=== PATIENT | female | born 1945 | race Caucasian/White ===

== ENCOUNTER 2019-01-26 06:52 | Day surgery (SDC) | payer MEDICARE, OTHER, SELFPAY ==
[2019-01-26 08:00] VITALS: BMI 39.8
[2019-01-26 08:05] VITALS: BP 172/77; PULSE 87; RESP 18; TEMP 36.1; O2SAT 95
[2019-01-26] MEDS: CATARACT EYE COMPOUND (10 DROPS/SYRINGE) 3 DROPS EYE-OP (08:11)
[2019-01-26] MEDS: PROPARACAINE 0.5% OPHTH SOL 2 DROPS EYE-OP (08:11)
--- NOTE | 2019-01-26 08:34 | PM.PREOP ---
Pre-operative Note Interval Note History & Physical reviewed/Exam performed by Physician: No Changes to H&P: No
--- NOTE | 2019-01-26 08:35 | PM.OP.1 ---
Operative Date/Time/Diagnoses Pre-op diagnosis: Nuclear cataract right eye Procedure & Clinicians Procedure: Cataract Surgery Same procedure as scheduled: Yes Surgeon: Fuad Mckeon Anesthesia Type: MAC +/- and Sedation Operative Notes Procedure in detail: Patient brought to the operating suite. Tetracaine drops placed in the right eye. Patient was prepped and draped in sterile manner. Wire lid speculum was placed in the eye. Betadine drops were placed on the eye. This was irrigated. Lidocaine jelly was placed on the eye. A paracentesis port was created with a side-port blade. 0.1 mL 1% preservative free lidocaine was injected into the anterior chamber. The anterior chamber was deepened with viscoelastic. 2.6 mm keratome was used to create a temporal clear corneal incision. Cystotome and Utrata forceps were used to create continuous tear capsulorrhexis. Balanced salt solution was used to hydro dissect the nucleus. The phacoemulsification handpiece was inserted and the nucleus was removed using the stop and chop technique. The irrigation aspiration handpiece was inserted and the remaining cortex was removed. Anterior chamber was deepened with viscoelastic. An Young ZCB00 intraocular lens with a power of 20.5 was injected into the capsular bag. Irrigation aspiration handpiece was inserted and the remaining viscoelastic was removed. Incision was hydrated with balanced salt solution and found to be leak free with pressure with Weck-Lorie sponges. 0.1 mL Vigamox injected anterior chamber. 0.3 mL Kenalog 10 mg was injected subconjunctivally. Lid speculum was removed. The patient left the operating room in excellent condition. Complications: none Post-operative Condition: stable Disposition: same day surgery
[2019-01-26] MEDS: MOXIFLOXACIN 0.5% OPHTH 60 DROPS/BOTTLE DROPS EYE-BOTH (08:46)
[2019-01-26] MEDS: LIDOCAINE JELLY 2% 5 ML 1 APPLIC TOP (08:46)
[2019-01-26] MEDS: PHENYLEPHRINE/LIDOCAINE VIAL (OR) 0.2 ML EYE-OP (08:46)
[2019-01-26] MEDS: BALANCED SALT IRRIG SOLN NO.2 500 ML, EPINEPHrine 1 MG IRR (08:47)
[2019-01-26] MEDS: TETRACAINE 0.5% OPHTH DROPS 4 ML 2 DROPS EYE-OP (08:47)
[2019-01-26] MEDS: CHONDROIDTIN/SOD HYALURONATE 1.05 ML SYRINGE INTRAOCULA (08:47)
[2019-01-26] MEDS: TRIAMCINOLONE 50 MG/5 ML VIAL INJ (08:47)
[2019-01-26 09:04] VITALS: BP 140/76; PULSE 53; RESP 15; TEMP 36.2; O2SAT 94
[2019-01-26 09:16] VITALS: BP 117/76; PULSE 70; RESP 14; TEMP 36.2; O2SAT 95
== END 2019-01-26 09:26 ==
LOC: OR 06:57
PROVIDERS: PCP Student in an Organized Health Care Education/Training Program; Visit Provider Ophthalmology
PROC: (CPT 66984; principal; 2019-01-26 08:45)
DX: H25.11 Age-related nuclear cataract, right eye (principal)
CPT/HCPCS: 66984; J0171; J2250; J3010; J3301

== ENCOUNTER 2019-02-16 11:41 | Day surgery (SDC) | payer MEDICARE, OTHER, SELFPAY ==
[2019-02-16 12:25] VITALS: BMI 34.5
[2019-02-16] MEDS: PROPARACAINE 0.5% OPHTH SOL 2 DROPS EYE-OP (12:35)
[2019-02-16] MEDS: CATARACT EYE COMPOUND (10 DROPS/SYRINGE) 3 DROPS EYE-OP (12:40)
--- NOTE | 2019-02-16 12:43 | PM.PREOP ---
Pre-operative Note Interval Note History & Physical reviewed/Exam performed by Physician: No Changes to H&P: No
--- NOTE | 2019-02-16 12:43 | PM.OP.1 ---
Operative Date/Time/Diagnoses Pre-op diagnosis: Nuclear Cataract Left eye Post-op diagnosis: same Procedure & Clinicians Surgeon: Fuad Mckeon Anesthesia Type: MAC +/- and Sedation Operative Notes Procedure in detail: Patient brought to the operating suite. Tetracaine drops placed in the left eye. Patient was prepped and draped in sterile manner. Wire lid speculum was placed in the eye. Betadine drops were placed on the eye. This was irrigated. Lidocaine jelly was placed on the eye. A paracentesis port was created with a side-port blade. 0.1 mL 1% preservative free lidocaine was injected into the anterior chamber. The anterior chamber was deepened with viscoelastic. 2.6 mm keratome was used to create a temporal clear corneal incision. Cystotome and Utrata forceps were used to create continuous tear capsulorrhexis. Balanced salt solution was used to hydro dissect the nucleus. The phacoemulsification handpiece was inserted and the nucleus was removed using the stop and chop technique. The irrigation aspiration handpiece was inserted and the remaining cortex was removed. Anterior chamber was deepened with viscoelastic. An Young ZCB00 intraocular lens with a power of 20.5 was injected into the capsular bag. Irrigation aspiration handpiece was inserted and the remaining viscoelastic was removed. Incision was hydrated with balanced salt solution and found to be leak free with pressure with Weck-Lorie sponges. 0.1 mL Vigamox injected anterior chamber. 0.3 mL Kenalog 10 mg was injected subconjunctivally. Lid speculum was removed. The patient left the operating room in excellent condition. Complications: none Post-operative Condition: stable Disposition: same day surgery
--- NOTE | 2019-02-16 12:59 | SUR.OPER ---
Supine on eye stretcher, head on extension cradle secured with tape. Arms tucked at sides with blanket. Pillow under knees.
[2019-02-16] MEDS: PHENYLEPHRINE/LIDOCAINE VIAL (OR) 0.2 ML EYE-OP (13:01)
[2019-02-16] MEDS: CHONDROIDTIN/SOD HYALURONATE 1.05 ML SYRINGE INTRAOCULA (13:01)
[2019-02-16] MEDS: TRIAMCINOLONE 50 MG/5 ML VIAL INJ (13:01)
[2019-02-16] MEDS: BALANCED SALT IRRIG SOLN NO.2 500 ML, EPINEPHrine 1 MG IRR (13:02)
[2019-02-16] MEDS: TETRACAINE 0.5% OPHTH DROPS 4 ML 2 DROPS EYE-OP (13:02)
[2019-02-16] MEDS: LIDOCAINE JELLY 2% 5 ML 1 APPLIC TOP (13:02)
[2019-02-16] MEDS: MOXIFLOXACIN INJ 5 MG/ML VIAL EYE-OP (13:03)
[2019-02-16 13:15] VITALS: BP 190/106; PULSE 80
[2019-02-16 13:27] VITALS: BP 190/90; PULSE 70; RESP 16; TEMP 35.9; O2SAT 99
[2019-02-16 13:45] VITALS: BP 157/74; PULSE 74; RESP 16; O2SAT 99
== END 2019-02-16 13:49 | disposition home or self-care (01) ==
PROVIDERS: PCP Student in an Organized Health Care Education/Training Program; Visit Provider Ophthalmology
PROC: (CPT 66984; principal; 2019-02-16 13:45)
DX: H25.12 Age-related nuclear cataract, left eye (principal); I10 Essential (primary) hypertension; J44.9 Chronic obstructive pulmonary disease, unspecified
CPT/HCPCS: 66984; J0171; J2250; J3010; J3301

== ENCOUNTER → 2019-04-27 14:33 | Outpatient (ROUT) | payer MEDICARE, OTHER, SELFPAY ==
[2019-04-27 15:11] LABS: Influenza A - CEPHEID Flu A POSITIVE (NEGATIVE); Influenza B - CEPHEID Flu B NEGATIVE (NEGATIVE)
== END ==
PROVIDERS: PCP Student in an Organized Health Care Education/Training Program; Visit Provider Internal Medicine
DX: R05 Cough (principal); R09.81 Nasal congestion; R52 Pain, unspecified
CPT/HCPCS: 87502

== ENCOUNTER → 2019-05-24 12:50 | Outpatient (CLI) | payer MEDICARE, OTHER, SELFPAY ==
--- NOTE | 2019-05-24 | DI.MRI.S_ITS ---
PROCEDURE: MR PELIS WO/W CON INDICATIONS: Right ovarian cyst/mass TECHNIQUE: Noncontrast coronal T1 spin echo and STIR, sagittal T1 spin echo with fat saturation and STIR, axial T1 spin echo and T2 fast spin echo with fat saturation. After the administration of contrast, axial/sagittal/coronal T1 spin echo with fat saturation through the pelvis. COMPARISON: [facility], RG, CT ABDOMEN/PELVIS WITHOUT CONTRAST, 05/03/2019, 2:17. FINDINGS: Image quality: Excellent. Bones: The visualized bone marrow demonstrates normal signal on all sequences. The overlying cortex appears intact. No abnormal intraosseous enhancement. Soft tissues: No soft tissue masses are visualized. There is a previously identified large cyst at the right hemipelvis extending to the midline, with the maximal axial dimensions of 6.8 cm craniocaudad, 6.0 cm transverse, and 7.8 cm AP. No nodularity, internal septations or adjacent adenopathy is found. No contrast enhancement is identified. The scanned muscles demonstrate normal overall bulk and internal signal. Subcutaneous tissues appear normal as well. No abnormal soft tissue enhancement. IMPRESSION: Large but simple appearing cyst right adnexa, measuring up to 6.8 x 6.0 x 7.8 cm. This shows no mural nodularity, no internal septations, measures water in density centrally on CT scanning from 05/03/19, and has not changed over time. Benign etiology is presumed. If clinically desired followup by ultrasound scanning could be performed. Gynecological consultation is anticipated for definitive advise on management of this particular finding. Dictated by: Hubert Smith M.D. on 05/24/2019 at 17:19 Approved by: Hubert Smith M.D. on 05/24/2019 at 17:24
== END ==
PROVIDERS: PCP Student in an Organized Health Care Education/Training Program; Referring Provider Student in an Organized Health Care Education/Training Program; Visit Provider Student in an Organized Health Care Education/Training Program
DX: N83.201 Unspecified ovarian cyst, right side (principal)
CPT/HCPCS: 72197; A9579

== ENCOUNTER → 2020-04-18 15:38 | Outpatient (CLI) | payer MEDICARE, OTHER, SELFPAY ==
[2020-04-18 16:17] LABS: D Dimer 221 ng/mL (<230)
== END ==
PROVIDERS: PCP Student in an Organized Health Care Education/Training Program; Referring Provider Student in an Organized Health Care Education/Training Program; Visit Provider Student in an Organized Health Care Education/Training Program
DX: R09.89 Other specified symptoms and signs involving the circulatory and respiratory systems (principal); L81.9 Disorder of pigmentation, unspecified
CPT/HCPCS: 36415; 85379

== ENCOUNTER → 2020-04-20 13:52 | Outpatient (CLI) | payer MEDICARE, OTHER, SELFPAY | PROVIDERS: PCP Student in an Organized Health Care Education/Training Program; Referring Provider Student in an Organized Health Care Education/Training Program; Visit Provider Student in an Organized Health Care Education/Training Program | DX: N83.9 Noninflammatory disorder of ovary, fallopian tube and broad ligament, unspecified (principal) ==

== ENCOUNTER → 2020-04-20 13:56 | Outpatient (CLI) | payer MEDICARE, OTHER, SELFPAY ==
--- NOTE | 2020-04-20 | DI.US.S_ITS ---
PROCEDURE: US PELVIC COMPLETE INDICATIONS: INFLAMMATORY DISORDER OF OVARIES TECHNIQUE: Real-time scanning was performed of the pelvic organs, with image documentation. COMPARISON: [facility], MR, MR PELVIS WO/W CON, 05/24/2019, 13:17. FINDINGS: Transabdominal scanning: Limited scanning through the kidneys shows no hydronephrosis. No pathologic free abdominal or pelvic fluid. Uterus: Uterus is normal in size at 7.1 x 6.7 x 3.0 cm. The endometrium not well seen sonographically. Ovaries: Redemonstrated right adnexal cyst, with relatively simple appearance and scattered internal low level echoes suggestive of debris measuring 7.1 x 8.1 x 7.0 cm, previously 6.8 x 6.0 x 7.8 cm. Left ovary not well visualized. Right ovary not well seen. IMPRESSION: Redemonstrated right adnexal cyst. This is much better characterized on the comparison MRI from 05/24/19, although by ultrasound demonstrates slight interval increase in size. Recommend gynecological oncology consultation and management, potentially laparoscopic evaluation, as clinically required to exclude malignancy. Dictated by: Janak Morfin M.D. on 04/20/2020 at 15:17 Approved by: Janak Morfin M.D. on 04/20/2020 at 15:23
--- NOTE | 2020-04-20 | DI.US.S_ITS ---
PROCEDURE: US PERIPH VENOUS LOW EXTREM BI INDICATIONS: POOR CIRCULATION TECHNIQUE: Real-time imaging, as well as color and pulse Doppler interrogation, were performed of the deep veins of both legs from the inguinal ligament to the popliteal fossa. COMPARISON: None. FINDINGS: Right: The common femoral, femoral and popliteal veins are normally compressible, and free of intraluminal thrombus. Color and pulse Doppler demonstrate normal phasic intravascular flow. There is normal augmentation response to distal compression maneuver. Left: The common femoral, femoral and popliteal veins are normally compressible, and free of intraluminal thrombus. Color and pulse Doppler demonstrate normal phasic intravascular flow. There is normal augmentation response to distal compression maneuver. IMPRESSION: Negative for deep venous thrombosis. Dictated by: Guillermo Blackwell M.D. on 04/20/2020 at 14:23 Approved by: Guillermo Blackwell M.D. on 04/20/2020 at 14:26
== END ==
PROVIDERS: PCP Student in an Organized Health Care Education/Training Program; Referring Provider Student in an Organized Health Care Education/Training Program; Visit Provider Student in an Organized Health Care Education/Training Program
DX: R09.89 Other specified symptoms and signs involving the circulatory and respiratory systems (principal); N70.92 Oophoritis, unspecified; N94.89 Other specified conditions associated with female genital organs and menstrual cycle
CPT/HCPCS: 76856; 93970

== ENCOUNTER → 2020-07-14 17:07 | Outpatient (CLI) | payer MEDICARE, OTHER, SELFPAY ==
[2020-07-14 19:27] LABS: Cancer Antigen 125 < 5.5 U/mL (0-35)
[2020-07-16 15:30] LABS: Human Epididymis Prot 4 85.7 pmol/L (0.0-96.9)
== END ==
PROVIDERS: PCP Student in an Organized Health Care Education/Training Program; Referring Provider Specialist; Visit Provider Specialist
DX: N83.201 Unspecified ovarian cyst, right side (principal)
CPT/HCPCS: 36415; 86304; 86305

== ENCOUNTER → 2021-01-30 12:44 | Outpatient (CLI) | payer MEDICARE, OTHER, SELFPAY | PROVIDERS: PCP Student in an Organized Health Care Education/Training Program; Referring Provider Specialist; Visit Provider Specialist | DX: N83.201 Unspecified ovarian cyst, right side (principal); Z53.20 Procedure and treatment not carried out because of patient's decision for unspecified reasons ==

== ENCOUNTER → 2022-09-02 14:05 | Outpatient (ROUT) | payer MEDICARE, OTHER, SELFPAY ==
[2022-09-02 14:24] LABS: Appearance Urine UA CLEAR; Bilirubin Urine UA NEGATIVE (NEGATIVE); Color Urine UA YELLOW; Glucose Urine UA NEGATIVE (Negative); Ketones Urine UA NEGATIVE (NEGATIVE); Leukocyte Esterase Urine UA 3+ (NEGATIVE); Nitrite Urine UA NEGATIVE (Negative); Occult Blood Urine UA 3+ (Negative); Protein Urine UA NEGATIVE (Negative); Specific Gravity Urine UA <=1.005 (1.000-1.035); Urobilinogen Urine UA 0.2 E.U./dL (0.2)
[2022-09-02 23:25] LABS: Bacteria Urine Many (>30); RBC Urine 5-10/HPF (0-5/HPF); WBC Urine >100/HPF (0-5/HPF)
[2022-09-02 23:26] LABS: Urine Comments WBC CLUMPS PRESENT
== END ==
PROVIDERS: PCP Student in an Organized Health Care Education/Training Program; Visit Provider Internal Medicine
DX: R30.9 Painful micturition, unspecified (principal)
CPT/HCPCS: 81001; 87077; 87086

== ENCOUNTER 2022-09-04 15:15 | Emergency (ER) | payer MEDICARE, OTHER, SELFPAY ==
[2022-09-04] VITALS (11 sets, daily range): BP systolic 123–159; BP diastolic 55–87; PULSE 47–93; RESP 16; TEMP 37.1; O2SAT 93–95; BMI 38.4
--- NOTE | 2022-09-04 15:56 | ED.GENADULT ---
HPI - General Adult General Chief complaint: Extremity Injury, Lower Stated complaint: Increase Pain/Swelling L Knee Time Seen by Provider: 09/04/22 15:26 Source: patient and EMS Mode of arrival: EMS Limitations: no limitations History of Present Illness HPI narrative: Patient is a 77-year-old female. She arrives by EMS for evaluation of left knee pain, bladder pain, and diarrhea. Last she underwent a left total knee arthroplasty. She is had [facility] rehab. She states for the past couple days she is felt like she is had a urinary tract infection. She stated that she told the staff at the facility. She would a urine sample couple days ago but has not hurt any the results of a. She continues to have a lot of bladder discomfort. She also has had diarrhea this morning. This has caused all of her left knee discomfort just become worse. She states she was walking yesterday but today had a difficult time standing because of her increase in discomfort. Denies any fevers. No vomiting. Related Data Home Medications Medication Instructions Recorded Confirmed albuterol sulfate 90 mcg/actuation 1 puff INH Q4HP PRN Shortness Of 09/26/16 07/14/20 aerosol inhaler (Proventil HFA) Breath Or Wheezing ##0 fluticasone propionate 50 1 spray intranasal QDAYP PRN 09/26/16 07/14/20 mcg/actuation nasal Shortness Of Breath Or Wheezing ##0 spray,suspension naproxen sodium 220 mg tablet 2 tab PO BIDP PRN Pain (Scale 09/26/16 07/14/20 (Aleve) Score 1-3) ##0 losartan 50 mg tablet 50 mg PO DAILY 01/26/19 07/14/20 Previous Rx's Medication Instructions Recorded hydrocodone 5 mg-acetaminophen 300 1 tab PO Q4HP PRN #45 tabs 10/12/16 mg tablet (Vicodin) aluminum-mag hydroxide-simethicone 30 ml PO QIDP PRN ##15 10/14/16 200 mg-200 mg-20 mg/5 mL oral susp (Mag-Al Plus) bisacodyl 10 mg rectal suppository 10 mg R PRN PRN ##15 10/14/16 docusate sodium 100 mg capsule 100 mg PO BID #10 caps 10/14/16 oxybutynin chloride 10 mg 10 mg PO DAILY over active bladder 07/14/20 tablet,extended release 24 hr #30 tabs cephalexin 500 mg capsule 500 mg PO BID 5 days #10 caps 09/04/22 Allergies Allergy/AdvReac Type Severity Reaction Status Date / Time morphine [MORPHINE] AdvReac Intermediate HEAVY Verified 02/16/19 12:28 CHEST, NAUSEA Review of Systems Constitutional Constitutional: Reports system reviewed and no additional complaints, except as documented Cardiovascular Cardiovascular: Reports system reviewed and no additional complaints, except as documented Respiratory Respiratory: Reports system reviewed and no additional complaints, except as documented Gastrointestinal Gastrointestinal: Reports system reviewed and no additional complaints, except as documented Genitourinary Genitourinary: Reports system reviewed and no additional complaints, except as documented Integumentary/Breasts Skin/Breast: Reports system reviewed and no additional complaints, except as documented Neurologic Neurologic: Reports system reviewed and no additional complaints, except as documented Hematologic/Lymphatic On Anticoagulants: No Patient History Social History household members: other Exam Initial Vital Signs Initial Vital Signs: Vital Signs Pulse Rate 61 09/04/22 15:30 Blood Pressure 142/83 H 09/04/22 15:30 Pulse Oximetry 93 09/04/22 15:30 Const General: cooperative, comfortable and No ill appearing HENMT Head: normal to inspection and normocephalic Resp Effort & Inspection: normal respiratory effort Auscultation: clear to auscultation bilaterally Cardio Rate: regular rate Rhythm: regular rhythm GI Inspection: normal to inspection Palpation: tender (Lower abdomen) Skin Other: Patient with a surgical dressing on her left knee that is intact and dry. Does have some dried blood. She also has redness and swelling to both of her lower extremities. Neuro General: patient alert, patient awake, patient oriented x3 and moves all extremities Extrem Other: Swelling to the left lower extremity but it is consistent with her postoperative course. Course Orders Ordered: Discontinued Medications Hydrocodone Bitart/Acetaminophen (Hydrocodone/Acet 5/325 Tablet) 1 tab PO NOW ONE Stop: 09/04/22 15:58 Last Admin: 09/04/22 16:06 Dose: 1 tab Documented By: JJ Cephalexin HCl (Cephalexin 250 Mg Capsule) 500 mg PO NOW ONE Stop: 09/04/22 15:59 Last Admin: 09/04/22 16:06 Dose: 500 mg Documented By: RB Phenazopyridine HCl (Phenazopyridine 100 Mg Tablet) 100 mg PO NOW ONE Stop: 09/04/22 15:58 Last Admin: 09/04/22 16:06 Dose: 100 mg Documented By: RB Vital Signs Vital signs: Vital Signs - 8 hr 09/04/22 15:46 09/04/22 15:55 09/04/22 15:30 Temperature 98.7 F Pulse Rate 61 Pulse Rate [Left Dorsalis Pedis] 80 Respiratory Rate 16 Blood Pressure 142/83 H 142/83 H Pulse Oximetry 95 Oxygen Delivery Method Room Air 09/04/22 15:30 Temperature Pulse Rate 61 Pulse Rate [Left Dorsalis Pedis] Respiratory Rate Blood Pressure Pulse Oximetry 93 Oxygen Delivery Method Medical Decision Making Medical Records Medical records reviewed: Yes I reviewed the patient's medical records. Lab Data Lab results reviewed: Yes I reviewed the patient's lab results. MDM Narrative Medical decision making narrative: Patient's left lower extremity is appropriate in appearance at this point in her postoperative course. There was no signs of any infection. Review of her medical record shows that a urinalysis from a couple days ago does have findings consistent with a urinary tract infection and she states she has UTI like symptoms. Patient had a difficult time urinating here in the emergency department. Bladder scan showed 261 mL however patient was in quite a bit of discomfort. We discussed the risks and benefits of placing a urinary catheter and afterwards she agreed to have the catheter placed. Upon placement of the catheter almost 2 L of urine returned. Obviously the bladder scan was not correct. Patient did state that she felt much better afterwards. I had a long discussion with her regarding options to include leaving the catheter in place verses removing the catheter. We discussed risks and benefits of this. We discussed the possibility that if we remove the catheter if you would start to retain urine once again potentially we would have to place a catheter again. We also discussed the benefits of removing the catheter. After this discussion the patient opted to have the catheter removed. Given her symptoms and also her urinalysis from a couple days ago we will start her on antibiotics. She was given 1st dose here in the emergency department. Will discharge patient home with return precautions. She expressed understanding and agreement. Discharge Plan Departure Patient Disposition: Home Clinical Impression: Acute urinary retention, Urinary tract infection Instructions: DI for Urinary Tract Infection (UTI), DI for Urinary Retention in Women Activity Restrictions/Additional Instructions: I do recommend that you continue to follow all of the postoperative instructions given to you by the general surgeons. After our discussion you did opt to have the urinary catheter removed. If you start to have problems urinating again or start to have the return of the lower abdominal pain you do need to return to the emergency department as there maybe a chance that you start to retain urine once again. I do recommend you take the antibiotics as directed. Keep all of your scheduled medical appointments. Prescriptions: New cephalexin 500 mg capsule 500 mg PO BID 5 Days Qty: 10 0RF No Action albuterol sulfate [Proventil HFA] 90 MCG/PUFF HFA aerosol inhaler 1 puff INH Q4HP PRN (Reason: Shortness Of Breath Or Wheezing) Qty: 0 fluticasone propionate 16 GM spray,suspension 1 spray Intranasal QDAYP PRN (Reason: Shortness Of Breath Or Wheezing) Qty: 0 naproxen sodium [Aleve] 220 MG tablet 2 tab PO BIDP PRN (Reason: Pain (Scale Score 1-3)) Qty: 0 hydrocodone-acetaminophen [Vicodin] 5 MG/300 MG tablet 1 tab PO Q4HP PRNQty: 45 0RF bisacodyl 10 MG suppository 10 mg R PRN PRNQty: 15 0RF docusate sodium 100 MG capsule 100 mg PO BID Qty: 10 0RF alum-mag hydroxide-simeth [Mag-Al Plus] 30 ML suspension 30 ml PO QIDP PRNQty: 15 0RF oxybutynin chloride 10 mg tablet extended release 24hr 10 mg PO DAILY Qty: 30 0RF losartan 50 mg Tablet 50 mg PO DAILY Referrals: Yadira Brannon MD [Primary Care Provider] - Stand Alone Forms: Patient Portal/API
[2022-09-04] MEDS: cephALEXin 250 MG CAPSULE 500 MG PO (16:06)
[2022-09-04] MEDS: HYDROCODONE/ACET 5/325 TABLET 1 TAB PO (16:06)
[2022-09-04] MEDS: PHENAZOPYRIDINE 100 MG TABLET PO (16:06)
== END 2022-09-04 19:46 | disposition home or self-care (01) ==
PROVIDERS: Emergency Provider Emergency Medicine; PCP Student in an Organized Health Care Education/Training Program
DX: N39.0 Urinary tract infection, site not specified (principal); R33.8 Other retention of urine
CPT/HCPCS: 51798; 99283; 99284

== ENCOUNTER → 2023-09-26 15:29 | Outpatient (CLI) | payer MEDICARE, OTHER, SELFPAY ==
[2023-10-01 10:15] LABS: Human Epididymis Prot 4 92.4 pmol/L (0.0-96.9)
== END ==
PROVIDERS: PCP Family Medicine; Referring Provider Student in an Organized Health Care Education/Training Program; Visit Provider Student in an Organized Health Care Education/Training Program
DX: N83.201 Unspecified ovarian cyst, right side (principal)
CPT/HCPCS: 36415; 86305

== ENCOUNTER → 2023-10-07 14:45 | Outpatient (CLI) | payer MEDICARE, OTHER, SELFPAY ==
--- NOTE | 2023-10-07 14:46 | DI.US.S_ITS ---
PROCEDURE: US PELVIC COMPLETE INDICATIONS: evaluate known right ovarian cyst TECHNIQUE: Real-time scanning was performed of the pelvic organs, with image documentation. Additional endovaginal scanning was necessary due to incomplete visualization of the adnexal and endometrial structures by transabdominal scanning. COMPARISON: [facility], US, US PELVIC COMPLETE, 04/20/2020, 14:19. FINDINGS: Uterus: Not visualized Ovaries: Not visualized. Focus of decreased echogenicity is present the right adnexa measuring 8.8 x 6.7 x 8.0 cm. It was present in 2019 measuring 7.1 x 8.1 x 7.0 cm. Other: No pathologic free abdominal or pelvic fluid. IMPRESSION: Focus of decreased echogenicity is present the right adnexa suggestive of prominent cyst. However, it is poorly visualized. It is noted that this was present on prior exam. And has only minimally increased in size We strive to produce accurate, complete, and clear reports of imaging services. To assist us in improving patient care, this report was composed using standard report templates and voice recognition software. Therefore, it may contain abnormal punctuation, insertions and/or omissions. Occasional wrong-word or sound-alike substitutions may occur. Though we review the report and make efforts to correct it, we do recommend that the report be read carefully in proper context to recognize any text inaccuracies. Dictated by: Kati Rodriguez M.D. on 10/07/2023 at 17:04 Approved by: Kati Rodriguez M.D. on 10/07/2023 at 17:05
== END ==
PROVIDERS: PCP Family Medicine; Referring Provider Student in an Organized Health Care Education/Training Program; Visit Provider Student in an Organized Health Care Education/Training Program
DX: N83.201 Unspecified ovarian cyst, right side (principal)
CPT/HCPCS: 76856

== ENCOUNTER → 2024-01-08 12:06 | Outpatient (CLI) | payer MEDICARE, OTHER, SELFPAY ==
--- NOTE | 2024-01-08 12:08 | DI.ECHO.S_ITS ---
[place] +---------+ Hospital : : [id number] : [place] [address] : : [id number] : : Phone: [phone] Echocardiogram Report + + :Name: ROCHELLE UP Study Date: 01/08/2024 Height: 62 in : :[facility] ReadingLocation: Weight: 210 lb : : Gender: Female BSA: 2.0 m2 : :: 1945 Age: 78 yrs BP: 174/87 mmHg: :Reason For Study: EDEMA OF BOTH FEET, SOB : :Ordering Physician: EREN : :VANESA Performed By: Lexy Crane : :Referring: VANESA JASON : + + Interpretation Summary The left ventricle is normal in size. The ejection fraction is estimated to be 65-70%. The right ventricle is normal in size and function. There is mild mitral regurgitation. There is mild tricuspid regurgitation. The right ventricular systolic pressure is estimated to be at least 31 mmHg based on an estimated right atrial pressure of 3 mm Hg. Procedure: A two-dimensional transthoracic echocardiogram with color flow and Doppler was performed. The study quality was technically adequate. There is no prior echocardiogram noted for this patient. The patient was in sinus rhythm with heart rates between 58-79 bpm during the exam. Left Ventricle: The left ventricle is normal in size. Proximal septal thickening is noted. There is no echo evidence for significant left ventricular outflow tract obstruction. There is no thrombus. The ejection fraction is estimated to be 65-70%. There are no focal wall motion abnormalities. Diastolic parameters suggest probable normal left ventricular diastolic function and normal filling pressures. Right Ventricle: The right ventricle is normal in size and function. Atria: The left atrium is mildly dilated. Right atrial size is normal. There is no Doppler evidence for an interatrial shunt. The thickening of interatrial septum suggests lipomatous hypertrophy. Mitral Valve: There is mild mitral annular calcification. There is mild mitral regurgitation. Aortic Valve: The aortic valve is trileaflet. The aortic valve opens well. There is no aortic valve stenosis. No aortic regurgitation is present. Tricuspid Valve: The tricuspid valve is normal. There is mild tricuspid regurgitation. The right ventricular systolic pressure is estimated to be at least 31 mmHg based on an estimated right atrial pressure of 3 mm Hg. Pulmonic Valve: The pulmonic valve leaflets are thin and pliable; valve motion is normal. There is trace pulmonic regurgitation. Great Vessels: The aortic root is normal size. The dimensions of the ascending aorta are normal. A linear artifact seen in the aortic arch. The IVC is of normal diameter and collapses greater than 50% with a sniff. This suggests a low right atrial pressure of 3 mm Hg. Pericardium/ Pleura There is no pericardial effusion. There is no pleural effusion. MMode/2D Measurements & Calculations LVIDd: 4.9 cm LVOT diam: 2.0 cm LVIDs: 2.9 cm Ao root diam: 2.9 cm FS: 41.2 % asc Aorta Diam: 3.2 cm IVSd: 0.88 cm Ao Arch Diam (Prox Trans): 3.0 cm LVPWd: 0.90 cm LV barr. diameter/BSA (cm/m^2): 2.5 LV sys. diameter/BSA (cm/m^2): 1.5 LA A2 area: 21.2 cm2 RA long axis: 4.8 cm LA A4 area: 20.7 cm2 RA area: 14.0 cm2 LA length (vol): 5.2 cm RA vol: 34.6 ml LA vol: 72.4 ml RA : 17.7 ml/m2 LA vol index: 37.1 ml/m2 IVC diam: 1.4 cm RVD1 (basal): 4.0 cm RVD2 (mid): 3.1 cm TAPSE: 2.2 cm Doppler Measurements & Calculations Ao V2 max: 135.1 cm/sec LVOT Max Ramyond: 109.6 cm/sec Ao V2 mean: 91.0 cm/sec LV V1 max P.8 mmHg Ao max P.3 mmHg LV V1 VTI: 24.8 cm Ao mean P.7 mmHg ITA(I,D): 2.7 cm2 Ao V2 VTI: 29.4 cm ITA(V,D): 2.6 cm2 sev ratio: 0.84 ITA indexed to BSA (cm^2/m^2): 1.4 MV E max raymond: 85.5 cm/sec TR max raymond: 262.7 cm/sec MV A max raymond: 72.7 cm/sec TR max P.6 mmHg MV E/A: 1.2 PA V2 max: 109.5 cm/sec Med Peak E' Raymond: 6.9 cm/sec PA V2 mean: 78.4 cm/sec E/E' med: 12.3 PA mean P.7 mmHg Lat Peak E' Raymond: 6.1 cm/sec PA pr(Accel): 29.3 mmHg E/E' lat: 14.0 E/e' average: 13.2 MV dec time: 0.29 sec SV(LVOT): 78.5 ml Reading Physician:03:16 PM
== END ==
LOC: ECHO 12:07
PROVIDERS: PCP Family Medicine; Referring Provider Family Medicine; Visit Provider Family Medicine
DX: R60.0 Localized edema (principal); R06.02 Shortness of breath; I08.1 Rheumatic disorders of both mitral and tricuspid valves
CPT/HCPCS: 93306

== ENCOUNTER → 2024-09-01 16:26 | Outpatient (CLI) | payer MEDICARE, OTHER, SELFPAY ==
[2024-09-01 17:00] LABS: Appearance Urine UA CLEAR; Bilirubin Urine UA NEGATIVE (NEGATIVE); Color Urine UA YELLOW; Glucose Urine UA NEGATIVE (Negative); Ketones Urine UA NEGATIVE (NEGATIVE); Leukocyte Esterase Urine UA TRACE (NEGATIVE); Nitrite Urine UA NEGATIVE (Negative); Occult Blood Urine UA NEGATIVE (Negative); Protein Urine UA NEGATIVE (Negative); Urobilinogen Urine UA 0.2 E.U./dL (0.2)
[2024-09-01 17:01] LABS: Add Manual Diff / Slide Review NO; Basophils Absolute Auto 0 /uL (0-100); Basophils Percent Auto 0.3 % (0-2); Eosinophils Absolute Auto 200 /uL (0-450); Eosinophils Percent Auto 1.6 % (2-4); Hematocrit 40.7 % (36-46); Hemoglobin 13.5 g/dL (12.0-16.0); Lymphocytes Absolute Auto 1300 /uL (1100-4500); Lymphocytes Percent Auto 12.4 % (25-40); Mean Corpuscular HGB Conc 33.3 % (30-36); Mean Corpuscular Hemoglobin 28.1 PG (26-34); Mean Corpuscular Volume 84.4 fL (80-100); Monocytes Absolute Auto 800 /uL (0-900); Monocytes Percent Auto 7.4 % (3-14); Neutrophils Absolute Auto 8200 /uL (1500-7000); Neutrophils Percent Auto 78.3 % (50-75); Platelet Count 251 X10^3/uL (150-400); Red Blood Cell Count 4.82 X10^6/uL (4.0-5.2); Red Cell Distribution Width 15.5 % (11.6-14.8); White Blood Cell Count 10.5 X10^3/uL (4.5-11.0)
[2024-09-01 17:03] LABS: pH Urine UA 6.5 (4.5-8.0)
[2024-09-01 17:08] LABS: Bacteria Urine Occasional (0-1); Culture Indicated Urine Cult Not Indicated; RBC Urine None Seen (0-5/HPF); Squamous Epithelial Cell Urine 0-1 /HPF (0-5/HPF); Urine Volume 10mL (spun); WBC Urine 0-1/HPF (0-5/HPF)
[2024-09-01 17:22] LABS: Alanine Aminotransferase 27 IU/L (<35); Albumin 4.1 g/dL (3.5-5.0); Albumin Globulin Ratio 1.7 (1.0-2.8); Alkaline Phosphatase 112 U/L (38-126); Aspartate Aminotransferase 31 IU/L (14-36); BUN Creatinine Ratio 36.2 (6-22); Bilirubin Total 0.5 mg/dL (0.2-1.3); Blood Urea Nitrogen 21 mg/dL (7-17); Calcium 9.1 mg/dL (8.4-10.2); Carbon Dioxide 26 mmol/L (22-32); Chloride 103 mmol/L (98-107); Estimated Glomerular Filt Rate > 60 mL/min (>60); Globulin 2.4 g/dL (1.7-4.1); Glucose 94 mg/dL (70-99); HEMOLYSIS 33 (0-50); Sodium 137 mmol/L (137-145); Total Protein 6.5 g/dL (6.3-8.2)
[2024-09-01 17:25] LABS: Potassium 5.4 mmol/L (3.4-5.1)
== END ==
PROVIDERS: PCP Family Medicine; Referring Provider Family Medicine; Visit Provider Family Medicine
DX: R10.12 Left upper quadrant pain (principal)
CPT/HCPCS: 36415; 80053; 81001; 85025

== ENCOUNTER → 2024-09-08 13:01 | Outpatient (CLI) | payer MEDICARE, OTHER, SELFPAY ==
--- NOTE | 2024-09-08 | DI.CT.S_ITS ---
PROCEDURE: CT ABDOMEN PELVIS W CON INDICATIONS: LLQ tenderness TECHNIQUE: After the administration of intravenous contrast, axial sections acquired from the lung bases to the pubic symphysis. Coronal and sagittal reformats were performed. For radiation dose reduction, the following was used: automated exposure control, adjustment of mA and/or kV according to patient size. COMPARISON: [facility], , US PELVIC COMPLETE, 10/07/2023, 15:07. FINDINGS: Image quality: Diagnostic. Lower Chest: Heart is enlarged. ABDOMEN: Liver: No solid mass. Gallbladder: Removed. Biliary ducts: Mild biliary prominence suspected to be related to post cholecystectomy sequela. Pancreas: No ductal dilation. Spleen: Size is within normal limits. Adrenal Glands: No adrenal nodules. Kidneys and Ureters: No hydronephrosis. No solid mass. No complex renal cystic lesion which requires follow up. Stomach and Bowel: Normal colonic caliber, without significant wall thickening. Colonic diverticula are present. No associated inflammatory change. Prominent stool is present within the colon. Appendix is normal. Peritoneum: No abnormal intraperitoneal fluid. No free air. Ventral Wall: No significant ventral hernia. Abdominal Nodes: No retroperitoneal or mesenteric adenopathy by size criteria. Vessels: Aorta and inferior vena cava are normal in size. PELVIS: Pelvic Organs: 9.3 x 7.8 cm structure appearing to arise from the right adnexa. This was present on prior exam and is relatively unchanged in size. No distinctive solid-appearing enhancing foci are present. Bladder: No bladder wall thickening, accounting for underdistention. Pelvic Nodes: No enlarged lymph nodes. Miscellaneous: No inguinal hernias are seen. Bones: No aggressive osseous abnormality. IMPRESSION: Diverticulosis. Large cystic focus arising from the right adnexa. It is relatively unchanged compared to prior exam on 10/07/2023. No enhancing nodules are identified. However, given size and patient's age, cystic malignancy cannot be excluded and further evaluation with MRI may be obtained as indicated. Dictated by: Kati Rodriguez M.D. on 09/08/2024 at 21:54 Approved by: Kati Rodriguez M.D. on 09/08/2024 at 21:56
== END ==
PROVIDERS: PCP Family Medicine; Referring Provider Family Medicine; Visit Provider Family Medicine
DX: R10.814 Left lower quadrant abdominal tenderness (principal); K57.30 Diverticulosis of large intestine without perforation or abscess without bleeding; N94.89 Other specified conditions associated with female genital organs and menstrual cycle; R06.09 Other forms of dyspnea; Z87.891 Personal history of nicotine dependence; R94.2 Abnormal results of pulmonary function studies
CPT/HCPCS: 74177; 94010; Q9967

== ENCOUNTER → 2024-09-08 14:52 | Outpatient (CLI) | payer MEDICARE, OTHER, SELFPAY | PROVIDERS: PCP Family Medicine; Referring Provider Family Medicine; Visit Provider Family Medicine | DX: R06.09 Other forms of dyspnea (principal); Z87.891 Personal history of nicotine dependence; R94.2 Abnormal results of pulmonary function studies | CPT/HCPCS: 94010 ==

== ENCOUNTER → 2024-09-16 15:04 | Outpatient (CLI) | payer MEDICARE, OTHER, SELFPAY ==
--- NOTE | 2024-09-16 15:07 | DI.RAD.S_ITS ---
PROCEDURE: XR FOOT RT MIN 3V INDICATIONS: R FOOT PAIN TECHNIQUE: 3 views of the foot were acquired. COMPARISON: None. FINDINGS: Bones: No fractures or dislocations. No suspicious bony lesions. Mild hallux valgus metatarsus prima varus alignment and medial bunion. Mild 1st MTP and diffuse interphalangeal joint space narrowing. Mild calcaneal enthesopathy. Soft tissues: No tibiotalar joint effusion. Achilles tendon appears normal. IMPRESSION: 1. Mild hallux valgus alignment and medial bunion. 2. 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 3. Mild calcaneal enthesopathy. Dictated by: Emmanuel JENKINS Interpreted: Kati Rodriguez MD on 09/18/2024 at 12:03 Approved by: Kati Rodriguez M.D. on 09/20/2024 at 7:43
--- NOTE | 2024-09-16 15:07 | DI.RAD.S_ITS ---
PROCEDURE: XR ANKLE RT MIN 3V INDICATIONS: right ankle strain TECHNIQUE: 3 views of the ankle were acquired. COMPARISON: [facility], CR, XR FOOT RT MIN 3V, 09/16/2024, 15:11. FINDINGS: Bones: No fractures or dislocations. Ankle mortise is normally aligned. No suspicious bony lesions. Calcaneal enthesopathy. Soft tissues: No tibiotalar joint effusion. Achilles tendon appears normal. Diffuse soft tissue swelling with mottled appearance. IMPRESSION: No acute bony abnormality or significant effusion. Diffuse soft tissue swelling with mottled appearance which may be related to edema; however cellulitis cannot be excluded and direct observation recommended. Dictated by: Emmanuel Duvall [facility] Interpreted: Kati Rodriguez MD on 09/18/2024 at 12:02 Transcribed by: ROBI on 09/18/2024 at 12:03 Approved by: Kati Rodriguez M.D. on 09/20/2024 at 7:43
== END ==
PROVIDERS: PCP Family Medicine; Referring Provider Family Medicine; Visit Provider Family Medicine
DX: S93.401A Sprain of unspecified ligament of right ankle, initial encounter (principal); M79.671 Pain in right foot; M79.89 Other specified soft tissue disorders; M20.11 Hallux valgus (acquired), right foot; M21.611 Bunion of right foot; M19.071 Primary osteoarthritis, right ankle and foot; M77.31 Calcaneal spur, right foot; X58.XXXA Exposure to other specified factors, initial encounter
CPT/HCPCS: 73610; 73630

== ENCOUNTER → 2024-11-18 12:37 | Outpatient (CLI) | payer MEDICARE, OTHER, SELFPAY ==
--- NOTE | 2024-11-18 12:39 | DI.MRI.S_ITS ---
PROCEDURE: MR PELVIS WO/W CON INDICATIONS: N TECHNIQUE: Coronal HASTE, sagittal breath-hold T2 FSE; axial T1 FSE with and without fat saturation through the pelvis. Optional long- and short-axis uterine nonbreath-hold T2 FSE through the uterus. Sagittal or axial dynamic VIBE during administration of contrast. Post-contrast axial or coronal VIBE/2-D FLASH with fat saturation from the iliac crests to the symphysis. Optional diffusion weighted imaging and ADC may be performed. COMPARISON: [facility], , MR PELVIS WO/W CON, 05/24/2019, 13:17. FINDINGS: Image quality: Excellent. Uterus: Small filling defect within the endometrium measuring 3 millimeters. Adnexa: There is an adnexal cystic mass measuring 9.1 x 7.9 x 9.0 centimeter, previously 6.8 by 7.8 x 6.0 centimeter . There are no internal complexity such as papillary projections or nodularity. This likely region is from the right ovary. There is a separate left ovarian cyst measuring 2.0 x 1.6 centimeters, previously on 1.2 x 1.4 centimeter . This does not contain internal complexity either. Urinary system: Bladder wall is normal in thickness. Distal ureters are non distended. Urethra appears normal in morphology. Nodes and vessels: No pelvic or inguinal adenopathy by size criteria. Iliac vessels are normal in size. Bowel and peritoneum: No pathologic free pelvic fluid. Inferior colon and small bowel loops are normal in caliber. Colonic diverticulosis without evidence of diverticulitis. Soft tissues: Small right inguinal hernia containing fat. No findings of pelvic floor incompetence in the absence of provocation. Bones: Marrow demonstrates normal overall signal. IMPRESSION: Interval growth of the bilateral ovarian cystic lesions measuring 9.1 x 7.9 x 9.0 centimeter on the right (previously 6.8 x 7.8 x 6.0 centimeter), and 2.0 x 1.6 centimeters on the left (previously 1.2 x 1.4 centimeter). These are both O- RADS 2. Small filling defect within the endometrium measuring 3 millimeter. Correlate with postmenopausal bleeding as findings could represent a small malignancy. Tissue sampling could be considered. Dictated by: García Askew M.D. on 11/18/2024 at 16:26 Approved by: García Askew M.D. on 11/18/2024 at 16:33
== END ==
LOC: MRI 12:38
PROVIDERS: PCP Family Medicine; Referring Provider Family Medicine; Visit Provider Family Medicine
DX: R93.89 Abnormal findings on diagnostic imaging of other specified body structures (principal); N94.89 Other specified conditions associated with female genital organs and menstrual cycle; N83.292 Other ovarian cyst, left side; N83.291 Other ovarian cyst, right side; K57.30 Diverticulosis of large intestine without perforation or abscess without bleeding; K40.90 Unilateral inguinal hernia, without obstruction or gangrene, not specified as recurrent
CPT/HCPCS: 72197; A9579